=== PATIENT | male | born 1955 ===

== ENCOUNTER 2023-06-21 16:18 | Inpatient (IN) | payer OTHER ==
[2023-06-21 17:22] VITALS: BMI 41.5
[2023-06-21] MEDS ORDERED: HYDROcodone/Acetaminophen 5/325 mg Tablet PO PRN (17:24)
[2023-06-21] MEDS ORDERED: Ondansetron PF 4 MG/2 ML Vial IVP PRN (17:24)
[2023-06-21] MEDS ORDERED: Senokot S 8.6-50 MG TAB PO PRN (17:24)
[2023-06-21] MEDS ORDERED: Acetaminophen 325 MG TAB PO PRN (17:24)
[2023-06-21] MEDS ORDERED: Loperamide HCl 2 MG CAP PO PRN (17:55)
[2023-06-21] MEDS ORDERED: Dextrose 50% Abboject 50 ML SYRINGE SLOW IVP PRN (17:57)
[2023-06-21] MEDS ORDERED: Dextrose 5% in Water 1,000 ML IV PRN (17:57)
[2023-06-21] MEDS ORDERED: Glucagon 1 MG/ML KIT IM PRN (17:57)
[2023-06-21] MEDS ORDERED: HumaLOG 300 UNITS/3 ML VIAL SC PRN (17:57)
[2023-06-21] MEDS ORDERED: Albuterol 200 PUFF (6.7GM INHALER) INH PRN (18:52)
[2023-06-21] MEDS ORDERED: Heparin 25,000 units/D5W 500 ML IV SCH (19:00)
[2023-06-21] MEDS ORDERED: Heparin 10,000 UNITS/ 10 ML VIAL SLOW IVP SCH (19:00)
[2023-06-21] MEDS: Ipratropium Bromide 2.5 ml Neb NEB SCH ×2 (19:12→23:12)
[2023-06-21] MEDS: Calcium Carbonate 600 MG + Vit D TAB PO SCH (20:42)
[2023-06-21] MEDS: HYDROcodone/Acetaminophen 5/325 mg Tablet PO PRN (20:43)
[2023-06-21] MEDS: Lisinopril 20 MG TAB PO SCH (20:43)
[2023-06-21] MEDS: Allopurinol 100 MG TAB PO SCH (20:43)
[2023-06-21] MEDS: Artificial Tear Sol 15 ML BOT EA EYE SCH (20:44)
[2023-06-21] MEDS: Clopidogrel Bisulfate 75 MG TAB PO SCH (20:44)
[2023-06-21] MEDS ORDERED: Famotidine 20 MG TAB PO SCH (21:00)
[2023-06-21] MEDS: CEFAZOLIN 2 GM in Sodium Chloride 0.9% 100 ML IVPB SCH (21:47)
[2023-06-21 21:48] LABS: PTT 168.8 sec (22.9-36.1)
[2023-06-21] MEDS ORDERED: LOKELMA 10 GM PACKET PO SCH (22:33)
[2023-06-22 03:31] LABS: #Basophils 0.1 thou/uL (0.0-0.2); #Monocytes 1.8 thou/uL (0.11-0.59); #Neutrophils 23.8 thou/uL (1.40-6.50); %Basophils 0.3 % (0.0-1.0); %Eosinophils 0.1 % (0.0-10.0); %Lymphocytes 4.9 % (21.0-51.0); %Monocytes 6.6 % (0.0-10.0); %Neutrophils 87.5 % (42.0-75.0); Hematocrit 41.3 % (42.0-52.0); Hemoglobin 12.9 g/dL (14.0-18.0); Mean Corpuscular HGB CONC 31.2 g/dL (32.0-36.0); Mean Corpuscular Hemoglobin 28.7 pg (27.0-31.0); Mean Platelet Volume 9.5 fL (7.4-10.4); Platelet Count 189 10x3/uL (130-400); RBC Distribution Width 13.5 % (11.5-14.5); Red Blood Cell (RBC) Count 4.49 mill/uL (4.70-6.10); White Blood Cell (WBC) Count 27.2 10x3/uL (4.8-10.8)
[2023-06-22 03:42] LABS: Hemoglobin A1c 5.4 % (4.0-6.0)
[2023-06-22 03:50] LABS: Anion Gap 15 mmol/L (10-20); BUN (Urea Nitrogen) 21 mg/dL (8.4-25.7); Calc. Creatinine Clearance 71 mL/min (70-130); Calcium 8.9 mg/dL (7.8-10.44); Carbon Dioxide 25 mmol/L (23-31); Chloride 100 mmol/L (98-107); Estimated GFR 40; Glucose 127 mg/dL (80-115); Potassium 4.8 mmol/L (3.5-5.1); Sodium 135 mmol/L (136-145)
[2023-06-22] MEDS: CEFAZOLIN 2 GM in Sodium Chloride 0.9% 100 ML IVPB SCH ×3 (05:51→20:47)
[2023-06-22] MEDS: Mometasone 100 MCG/PUFF (1 INHALER) INH SCH ×2 (06:44→18:46)
[2023-06-22] MEDS: Ipratropium Bromide 2.5 ml Neb NEB SCH ×4 (06:47→23:25)
[2023-06-22] MEDS: Atorvastatin Calcium 40 MG TAB PO SCH (08:13)
[2023-06-22] MEDS: HYDROcodone/Acetaminophen 5/325 mg Tablet PO PRN ×2 (08:13→15:57)
[2023-06-22] MEDS: DULoxetine 60 MG CAP PO SCH (08:14)
[2023-06-22] MEDS: Calcium Carbonate 600 MG + Vit D TAB PO SCH ×2 (08:14→20:48)
[2023-06-22] MEDS: Artificial Tear Sol 15 ML BOT EA EYE SCH ×2 (08:15→20:48)
[2023-06-22] MEDS: Morphine 2 MG/ML VIAL SLOW IVP PRN ×2 (12:31→19:33)
[2023-06-22] MEDS: Lisinopril 20 MG TAB PO SCH (20:48)
[2023-06-22] MEDS: Clopidogrel Bisulfate 75 MG TAB PO SCH (20:48)
[2023-06-22] MEDS: Allopurinol 100 MG TAB PO SCH (20:48)
[2023-06-23] MEDS: Morphine 2 MG/ML VIAL SLOW IVP PRN ×4 (02:33→23:23)
[2023-06-23 04:17] LABS: #Eosinphils 0.2 thou/uL (0.0-0.7); #Monocytes 1.2 thou/uL (0.11-0.59); #Neutrophils 17.2 thou/uL (1.40-6.50); %Basophils 0.2 % (0.0-1.0); %Eosinophils 0.9 % (0.0-10.0); %Lymphocytes 3.7 % (21.0-51.0); %Monocytes 6.2 % (0.0-10.0); %Neutrophils 88.3 % (42.0-75.0); Hematocrit 36.1 % (42.0-52.0); Hemoglobin 11.8 g/dL (14.0-18.0); Mean Corpuscular HGB CONC 32.7 g/dL (32.0-36.0); Mean Corpuscular Hemoglobin 29.1 pg (27.0-31.0); Mean Corpuscular Volume 89.1 fl (78.0-98.0); Mean Platelet Volume 9.8 fL (7.4-10.4); Platelet Count 187 10x3/uL (130-400); RBC Distribution Width 13.7 % (11.5-14.5); Red Blood Cell (RBC) Count 4.05 mill/uL (4.70-6.10); White Blood Cell (WBC) Count 19.5 10x3/uL (4.8-10.8)
[2023-06-23] MEDS: CEFAZOLIN 2 GM in Sodium Chloride 0.9% 100 ML IVPB SCH ×3 (04:47→20:27)
[2023-06-23] MEDS: HYDROcodone/Acetaminophen 5/325 mg Tablet PO PRN ×3 (04:48→20:30)
[2023-06-23 04:53] LABS: Anion Gap 11 mmol/L (10-20); BUN (Urea Nitrogen) 22 mg/dL (8.4-25.7); Calc. Creatinine Clearance 109 mL/min (70-130); Calcium 8.7 mg/dL (7.8-10.44); Carbon Dioxide 26 mmol/L (23-31); Chloride 99 mmol/L (98-107); Estimated GFR 67; Glucose 131 mg/dL (80-115); Potassium 4.1 mmol/L (3.5-5.1); Sodium 132 mmol/L (136-145)
[2023-06-23] MEDS: Mometasone 100 MCG/PUFF (1 INHALER) INH SCH ×2 (08:05→18:19)
[2023-06-23] MEDS: Ipratropium Bromide 2.5 ml Neb NEB SCH ×4 (08:06→23:16)
[2023-06-23] MEDS: Artificial Tear Sol 15 ML BOT EA EYE SCH ×2 (09:04→20:28)
[2023-06-23] MEDS: Calcium Carbonate 600 MG + Vit D TAB PO SCH ×2 (09:05→20:28)
[2023-06-23] MEDS: Atorvastatin Calcium 40 MG TAB PO SCH (09:05)
[2023-06-23] MEDS: DULoxetine 60 MG CAP PO SCH (09:05)
[2023-06-23] MEDS: Aspirin 81 mg Enteric Coated Tablet PO SCH (09:06)
[2023-06-23] MEDS: Lisinopril 20 MG TAB PO SCH (20:28)
[2023-06-23] MEDS: Clopidogrel Bisulfate 75 MG TAB PO SCH (20:30)
[2023-06-23] MEDS: Allopurinol 100 MG TAB PO SCH (20:30)
[2023-06-24 04:21] LABS: #Eosinphils 0.2 thou/uL (0.0-0.7); #Monocytes 1.4 thou/uL (0.11-0.59); #Neutrophils 13.4 thou/uL (1.40-6.50); %Basophils 0.2 % (0.0-1.0); %Eosinophils 1.5 % (0.0-10.0); %Monocytes 8.7 % (0.0-10.0); %Neutrophils 83.9 % (42.0-75.0); Hematocrit 35.9 % (42.0-52.0); Hemoglobin 11.3 g/dL (14.0-18.0); Mean Corpuscular HGB CONC 31.5 g/dL (32.0-36.0); Mean Corpuscular Hemoglobin 28.3 pg (27.0-31.0); Mean Platelet Volume 9.7 fL (7.4-10.4); Platelet Count 188 10x3/uL (130-400); RBC Distribution Width 13.7 % (11.5-14.5); Red Blood Cell (RBC) Count 3.99 mill/uL (4.70-6.10); White Blood Cell (WBC) Count 15.9 10x3/uL (4.8-10.8)
[2023-06-24] MEDS: HYDROcodone/Acetaminophen 5/325 mg Tablet PO PRN ×3 (04:30→20:04)
[2023-06-24] MEDS: CEFAZOLIN 2 GM in Sodium Chloride 0.9% 100 ML IVPB SCH ×3 (04:31→21:11)
[2023-06-24 04:44] LABS: Anion Gap 11 mmol/L (10-20); BUN (Urea Nitrogen) 20 mg/dL (8.4-25.7); Calc. Creatinine Clearance 121 mL/min (70-130); Calcium 8.7 mg/dL (7.8-10.44); Carbon Dioxide 25 mmol/L (23-31); Chloride 100 mmol/L (98-107); Estimated GFR 76; Glucose 131 mg/dL (80-115); Potassium 4.2 mmol/L (3.5-5.1); Sodium 132 mmol/L (136-145)
[2023-06-24] MEDS ORDERED: Ipratropium/Albuterol 3 ML NEB NEB SCH (05:00)
[2023-06-24] MEDS: Ipratropium Bromide 2.5 ml Neb NEB SCH ×4 (07:07→23:33)
[2023-06-24] MEDS: Mometasone 100 MCG/PUFF (1 INHALER) INH SCH ×2 (07:09→18:37)
[2023-06-24] MEDS: Atorvastatin Calcium 40 MG TAB PO SCH (08:41)
[2023-06-24] MEDS: Calcium Carbonate 600 MG + Vit D TAB PO SCH ×2 (08:41→20:04)
[2023-06-24] MEDS: Aspirin 81 mg Enteric Coated Tablet PO SCH (08:41)
[2023-06-24] MEDS: DULoxetine 60 MG CAP PO SCH (08:41)
[2023-06-24] MEDS: Artificial Tear Sol 15 ML BOT EA EYE SCH ×2 (08:42→20:04)
[2023-06-24] MEDS: Morphine 2 MG/ML VIAL SLOW IVP PRN (15:44)
[2023-06-24] MEDS: Clopidogrel Bisulfate 75 MG TAB PO SCH (20:04)
[2023-06-24] MEDS: Lisinopril 20 MG TAB PO SCH (20:04)
[2023-06-24] MEDS: Allopurinol 100 MG TAB PO SCH (22:17)
[2023-06-25] MEDS: HYDROcodone/Acetaminophen 5/325 mg Tablet PO PRN ×3 (02:08→16:45)
[2023-06-25] MEDS: CEFAZOLIN 2 GM in Sodium Chloride 0.9% 100 ML IVPB SCH ×2 (03:48→12:23)
[2023-06-25 05:09] LABS: #Eosinphils 0.4 thou/uL (0.0-0.7); #Monocytes 1.1 thou/uL (0.11-0.59); #Neutrophils 9.3 thou/uL (1.40-6.50); %Basophils 0.3 % (0.0-1.0); %Eosinophils 3.3 % (0.0-10.0); %Lymphocytes 7.5 % (21.0-51.0); %Monocytes 9.6 % (0.0-10.0); %Neutrophils 78.5 % (42.0-75.0); Hematocrit 35.9 % (42.0-52.0); Hemoglobin 11.4 g/dL (14.0-18.0); Mean Corpuscular HGB CONC 31.8 g/dL (32.0-36.0); Mean Corpuscular Hemoglobin 28.4 pg (27.0-31.0); Mean Corpuscular Volume 89.5 fl (78.0-98.0); Mean Platelet Volume 9.9 fL (7.4-10.4); Platelet Count 207 10x3/uL (130-400); RBC Distribution Width 13.6 % (11.5-14.5); Red Blood Cell (RBC) Count 4.01 mill/uL (4.70-6.10); White Blood Cell (WBC) Count 11.8 10x3/uL (4.8-10.8)
[2023-06-25 05:35] LABS: Anion Gap 11 mmol/L (10-20); BUN (Urea Nitrogen) 17 mg/dL (8.4-25.7); Calc. Creatinine Clearance 123 mL/min (70-130); Calcium 8.8 mg/dL (7.8-10.44); Carbon Dioxide 24 mmol/L (23-31); Chloride 102 mmol/L (98-107); Estimated GFR 77; Glucose 134 mg/dL (80-115); Potassium 4.4 mmol/L (3.5-5.1); Sodium 133 mmol/L (136-145)
[2023-06-25] MEDS: Calcium Carbonate 600 MG + Vit D TAB PO SCH (08:16)
[2023-06-25] MEDS: DULoxetine 60 MG CAP PO SCH (08:16)
[2023-06-25] MEDS: Atorvastatin Calcium 40 MG TAB PO SCH (08:17)
[2023-06-25] MEDS: Aspirin 81 mg Enteric Coated Tablet PO SCH (08:17)
[2023-06-25] MEDS: Artificial Tear Sol 15 ML BOT EA EYE SCH (08:17)
[2023-06-25] MEDS: Ipratropium Bromide 2.5 ml Neb NEB SCH ×2 (08:46→13:02)
[2023-06-25] MEDS: Mometasone 100 MCG/PUFF (1 INHALER) INH SCH (08:46)
[2023-06-25 10:56] VITALS: BP 138/86; TEMP 97.9
== END 2023-06-25 18:00 | disposition home or self-care (01) | DRG 603 ==
LOC: INTOOBSV 16:37 → 2NO 16:37 → EEVIPCON 06-23 12:40 → OBSVTOIN 06-23 12:40
PROVIDERS: ADMIT Hospitalist; ATTEND Internal Medicine
DX: L03.115 Cellulitis of right lower limb (principal); I10 Essential (primary) hypertension; E78.5 Hyperlipidemia, unspecified; E11.51 Type 2 diabetes mellitus with diabetic peripheral angiopathy without gangrene; Z79.899 Other long term (current) drug therapy; Z79.84 Long term (current) use of oral hypoglycemic drugs; Z79.82 Long term (current) use of aspirin
CPT/HCPCS: 36415; 36416; 80048; 83036; 83880; 85025; 85730; 94640; 96372; 96374; 96375; 96376; G0378; J1650; J2272; J3490